=== PATIENT | male | born 1965 | race Caucasian/White ===

== ENCOUNTER 2016-05-16 12:47 | Emergency (ER) | payer MEDICARE, BC ==
[~2016-05-16] VITALS: Ht 175.3 cm; Wt 98.4 kg
[2016-05-16 12:49] VITALS: BP 139/103; PULSE 63; RESP 16; TEMP 98.7; O2SAT 98
[2016-05-16] MEDS ORDERED: GLAT1INJ SQ (12:51)
--- NOTE | 2016-05-16 13:21 | PD ---
HPI Chief Complaint: Musculoskeletal Complaint Time Seen by Provider: 13:17 Travel History International Travel<30 days: No Contact w/Intl Traveler<30days: No Traveled to known affect area: No History of Present Illness HPI Patient is a 50-year-old male presenting with left hand pain. He states 2 days ago he was walking on his pulled her neck when he slipped and fell landing with the back of the hand on the ground. Pain is in the lateral aspect over the fifth metacarpal, some at the base of the digit. He states when he moves the fingers sometimes radiates down into the hand. He has A splint on it which helps. He has swelling apply ice which also helped. He denies weakness or paresthesia. Denies any pain in the wrist, forearm and elbow of the left. He denies hitting his head or other injuries. PFSH Past Medical History Diminished Hearing: No Musculoskeletal: Yes (MS) Tetanus Vaccination: Unknown Influenza Vaccination: No Past Surgical History Tonsillectomy: Yes Social History Alcohol Use: No Tobacco Use: No Substance Use: No Allergies-Medications (Allergen,Severity, Reaction): Coded Allergies: No Known Allergies (Unverified , 05/16/16) Reported Meds & Prescriptions Reported Meds & Active Scripts Active Reported Copaxone Inj (Glatiramer Inj) 40 Mg/Ml Syr 40 Mg SQ 3XWEEK Use 3 times/week at least 48 hrs apart Review of Systems HENT: No: Headaches Musculoskeletal: Positive: Other (see the history of present illness) Skin: Positive Other (ecchymosis) Neurologic: No: Weakness, Focal Abnormalities, Paresthesia, Sensory Disturbance Physical Exam Narrative GENERAL: Well-developed and well-nourished adult male in no acute distress. SKIN: Warm and dry. Good turgor without tenting. HEAD: Normocephalic and atraumatic. CARDIOVASCULAR: Regular rate and rhythm without murmurs, rubs, clicks or gallops. Radial pulses 2+ bilaterally. Capillary refill less than 2 seconds assaultive of all fingers of left hand. RESPIRATORY: Clear to auscultation bilaterally with symmetrical rise and fall, no distress or use of accessory muscles. MUSCULOSKELETAL: Moderate edema and ecchymosis over the fourth and fifth metacarpals of the left hand. Tenderness over the fifth metacarpal without crepitus or step-offs. No other metacarpal tenderness. No fifth MCP tenderness. There is some tenderness at the base of the fifth finger of the left hand. From range of motion in flexion and extension of the finger even with isolation of the DIP and PIP joints. No pain to palpation of the wrist, forearm or elbow on the left. Normal range of motion of the left elbow and wrist. No scaphoid tenderness on the left. No gait disturbances. Patient freely moving all four extremities spontaneously. Extremities without clubbing, cyanosis, or edema. No obvious deformities. NEUROLOGIC: CN II-XII grossly intact. Awake and alert. Strength 5/5 bilateral elbow flexion, elbow extension, wrist flexion, wrist extension, flexion and extension of the fifth finger.sensation intact distal tip of the fifth finger left hand. Normal speech. PSYCHIATRIC: Appropriate mood and affect; insight and judgment normal. Data Data Last Documented VS Vital Signs Date Time Temp Pulse Resp B/P Pulse Ox O2 Delivery O2 Flow Rate FiO2 05/16/16 12:49 98.7 63 16 139/103 98 Orders Hand, Complete ([id number]) (05/16/16 13:16) [facility] Medical Decision Making Medical Screen Exam Complete: Yes Emergency Medical Condition: Yes Interpretation(s) Last 24 hours Impressions Hand X-Ray 05/16/16 1316 Signed Impressions: Service Date/Time: Monday, May 16, 2016 13:20 - CONCLUSION: No acute fracture. Zeeshan Banuelos MD Differential Diagnosis Hand contusion versus metacarpal fracture versus finger sprain versus finger fracture Narrative Course Patient is a 50-year-old male suffered a slip and fall 2 days prior suffering a contusion to the left hand on the fifth metacarpal and base of the fifth finger. Normal range of motion without deformity. There is some mild ecchymosis and edema. He is neurovascularly intact. X-ray shows evidence of fracture or dislocation. This was placed in a finger splint and Saad wrap for hand and finger sprain and recommend OTC anti-inflammatories.See discharge paperwork for further instructions. The plan was discussed with the patient who acknowledged their understanding and agreement. Reinforced the follow-up with primary care is critically important. Patient instructed on emergent conditions that should prompt return to ED. Diagnosis Primary Impression: Contusion of hand, left Additional Impression: Finger sprain Qualified Code: S63.657A - Sprain of metacarpophalangeal (MCP) joint of left little finger, initial encounter Patient Instructions: Contusion in Adults (ED), Finger Sprain (ED), General Instructions Additional Instructions: Take OTC ibuprofen or naproxen as needed for pain Apply ice every 1 to 2 hours as needed for pain Avoid maneuvers that aggravate pain Keep SAAD bandage and finger splint on while being active or using extremity Be aware that may take several weeks for sprains to heal fully Follow-up with PCP in 2-3 days Return to the ED for any acute worsening of symptoms Disposition: 01 DISCHARGE HOME Condition: Stable Saji Miller III May 16, 2016 13:20
--- NOTE | 2016-05-16 14:13 | RADHPO ---
EXAM DATE/TIME: 05/16/2016 13:20 [facility] COMPARISON: No previous studies available for comparison. INDICATIONS : Left hand/5th metacarpal pain. MEDICAL HISTORY : None. SURGICAL HISTORY : None. ENCOUNTER: Initial ACUITY: 3 days PAIN SCORE: 7/10 LOCATION: Left hand FINDINGS: Three view examination of the left hand demonstrates no soft tissue swelling, dislocation, or fractur e. The carpal bones appear intact. The interphalangeal and metacarpophalangeal joints are intact. Bony mineralization is normal. CONCLUSION: No acute fracture. Zeeshan Banuelos MD on May 16, 2016 at 13:41 Board Certified Radiologist. This report was verified electronically.
== END 2016-05-16 14:25 | disposition home or self-care (01) ==
LOC: PHEFT 12:47
DX: S60.222A Contusion of left hand, initial encounter (principal); S63.657A Sprain of metacarpophalangeal joint of left little finger, initial encounter; W01.0XXA Fall on same level from slipping, tripping and stumbling without subsequent striking against object, initial encounter
CPT/HCPCS: 73130; 99283

== ENCOUNTER 2017-06-06 09:37 | Emergency (ER) | payer MEDICARE, BC ==
[~2017-06-06] VITALS: Ht 175.3 cm; Wt 101.5 kg
[~2017-06-06 09:37] MED LIST: GLAT1INJ SQ
[2017-06-06 09:40] VITALS: BP 173/103; PULSE 62; RESP 15; TEMP 97.6; O2SAT 98
--- NOTE | 2017-06-06 10:08 | PD ---
HPI Chief Complaint: Head Injury Time Seen by Provider: 09:51 Travel History International Travel<30 days: No Contact w/Intl Traveler<30days: No Traveled to known affect area: No History of Present Illness HPI 51-year-old male that presents to the ED for evaluation of head injury and neck pain. Patient had a mechanical fall and injury of his head on . Per patient he was on the ground. He did not lose consciousness. His been having pain on the back of the neck radiates to the sides of the neck as well as pain behind the eyes since the fall. Symptoms are not improving which is what prompted evaluation. Patient taking 1000 mg of Tylenol for pain with minimal relief. Per patient the pain is not improving which is what prompted evaluation. Per patient the pain is 6 out of 10. No numbness, tilling, weakness. Patient does have a history of MS and takes medications for this. Denies any blurry vision or double vision. No trouble speaking. Able to ambulate. Has no allergies to medication. No urinary or bowel movement issues. No chest pain or shortness of breath. Has not seen anybody for this. Takes no blood thinners. Patient was put in a cervical collar by triage. PFSH Past Medical History Diminished Hearing: No Immune Disorder: Yes (MS) Musculoskeletal: Yes (MS) Tetanus Vaccination: > 5 Years Influenza Vaccination: No Past Surgical History Tonsillectomy: Yes Social History Alcohol Use: No Tobacco Use: No Substance Use: No Allergies-Medications (Allergen,Severity, Reaction): Coded Allergies: No Known Allergies (Unverified Adverse Reaction, Unknown, 06/06/17) Reported Meds & Prescriptions Reported Meds & Active Scripts Active Diclofenac Sodium DR (Diclofenac Sodium) 75 Mg Tabdr 75 Mg PO BID PRN Lisinopril 5 Mg Tab 5 Mg PO DAILY Reported Copaxone Inj (Glatiramer Inj) 40 Mg/Ml Syr 40 Mg SQ 3XWEEK Use 3 times/week at least 48 hrs apart Review of Systems Except as stated in HPI: all other systems reviewed are Neg Physical Exam Narrative GENERAL: SKIN: Warm and dry. HEAD: Atraumatic. Normocephalic. EYES: Pupils equal and round 4 mm reactive to light and accommodation. No scleral icterus. No injection or drainage. EOM intact bilaterally. Peripheral vision intact bilaterally. ENT: No nasal bleeding or discharge. Mucous membranes pink and moist. Tongue is midline. No uvula deviation. NECK: Trachea midline. No JVD. CARDIOVASCULAR: Regular rate and rhythm. No murmurs, S3, S4. RESPIRATORY: No accessory muscle use. Clear to auscultation. Breath sounds equal bilaterally. GASTROINTESTINAL: Abdomen soft, non-tender, nondistended. Hepatic and splenic margins not palpable. MUSCULOSKELETAL: Extremities without clubbing, cyanosis, or edema. No obvious deformities. Full range of motion of the upper and lower extremities bilaterally. Patient has reproducible pain on the cervical musculature of the neck. Patient was seen with cervical collar noted. No obvious deformity to the neck. No obvious cervical deformity. No lumbar, thoracic, spine tenderness to palpation. 2+ pulses bilaterally. NEUROLOGICAL: Awake and alert. No obvious cranial nerve deficits. Motor grossly within normal limits. Five out of 5 muscle strength in the arms and legs. Normal speech. PSYCHIATRIC: Appropriate mood and affect; insight and judgment normal. Data Data Last Documented VS Vital Signs Date Time Temp Pulse Resp B/P (MAP) Pulse Ox O2 Delivery O2 Flow Rate FiO2 06/06/17 10:42 60 18 159/97 (117) 97 Room Air 06/06/17 09:[address] Brain W/O Iv Contrast(Rout) (06/06/17 09:51) Ct Cerv Spine W/O Contrast (06/06/17 09:51) Ed Discharge Order (06/06/17 10:44) [facility] Medical Decision Making Medical Screen Exam Complete: Yes Emergency Medical Condition: Yes Medical Record Reviewed: Yes Interpretation(s) Last Impressions Head CT 06/06/17950 Signed Impressions: Service Date/Time: Tuesday, June 06, 2017 09:59 - CONCLUSION: Normal examination. Soto Whitaker MD Cervical Spine CT 06/06/17950 Signed Impressions: Service Date/Time: Tuesday, June 06, 2017 09:59 - CONCLUSION: Normal examination. Soto Whitaker MD Differential Diagnosis Muscle strain versus muscle spasm versus whiplash versus ICH versus fracture Narrative Course 51-year-old male that presents to the ED for evaluation of head injury and neck pain after fall. Patient was properly examined and was found to have signs and symptoms consistent with mechanical fall. Imaging was ordered. Imaging showed no sign of acute disease. Patient was reassured. This time is appears to be likely whiplash and concussion. Will treat with diclofenac sodium and over-the- counter remedies as needed. Patient was instructed to rest. Ice or warm compresses. Follow with PCP. Patient's blood pressure was slightly elevated here in the ED by mouth was 170 systolic initially was rechecked and 150s. Could be potentially essential hypertension starting versus blood pressure being elevated secondary to discomfort as well as been in the ER. I gave patient a short prescription for lisinopril to use his blood pressure continues to be 140. Follow with PCP. See ED worsening symptoms. Diagnosis Primary Impression: Whiplash injury Qualified Codes: S13.4XXA - Sprain of ligaments of cervical spine, initial encounter Additional Impression: Head injury, acute Qualified Codes: S09.90XA - Unspecified injury of head, initial encounter Patient Instructions: General Instructions Additional Instructions: Take medications as prescribed. Follow-up with PCP. See ED for any worsening symptoms. Do not drink or drive while taking pain medication. Apply ice or heat as needed for pain Med/Other Pt SpecificInfo: Prescription(s) given Scripts Diclofenac Sodium (Diclofenac Sodium DR) 75 Mg Tabdr 75 MG PO BID Y for PAIN SCALE 1 TO 10, #20 TAB 0 Refills Prov: Elissa Stone MD 06/06/17 Lisinopril (Lisinopril) 5 Mg Tab 5 MG PO DAILY for Blood Pressure Management, #30 TAB 0 Refills Prov: Elissa Stone MD 06/06/17 Disposition: 01 DISCHARGE HOME Condition: Stable Israel Mae Jun 06, 2017 10:08
--- NOTE | 2017-06-06 10:16 | RADRPT ---
EXAM DATE/TIME: 06/06/2017 09:59 [facility] COMPARISON: No previous studies available for comparison. INDICATIONS : Hit head on the ground playing softball. RADIATION DOSE: 67.22 CTDIvol (mGy) MEDICAL HISTORY : Neck lesions, MS SURGICAL HISTORY : Tonsillectomy. ENCOUNTER: Initial ACUITY: 1 day PAIN SCALE: 2/10 LOCATION: cranial TECHNIQUE: Multiple contiguous axial images were obtained of the head. Using automated exposure control and adj ustment of the mA and/or kV according to patient size, radiation dose was kept as low as reasonably a chievable to obtain optimal diagnostic quality images. DICOM format image data is available electro nically for review and comparison. FINDINGS: CEREBRUM: The ventricles are normal for age. No evidence of midline shift, mass lesion, hemorrhage or acute in farction. No extra-axial fluid collections are seen. POSTERIOR FOSSA: The cerebellum and brainstem are intact. The 4th ventricle is midline. The cerebellopontine angle i s unremarkable. EXTRACRANIAL: The visualized portion of the orbits is intact. SKULL: The calvaria is intact. No evidence of skull fracture. CONCLUSION: Normal examination. Soto Whitaker MD on June 06, 2017 at 10:15 Board Certified Radiologist. This report was verified electronically.
--- NOTE | 2017-06-06 10:20 | RADRPT ---
EXAM DATE/TIME: 06/06/2017 09:59 [facility] COMPARISON: No previous studies available for comparison. INDICATIONS : <Trauma head pain head neck> RADIATION DOSE: <26.67> CTDIvol (mGy) MEDICAL HISTORY : <trauma, ms>> SURGICAL HISTORY : <None> ENCOUNTER: <Acute> ACUITY: <acute> PAIN SCALE: <2/10> LOCATION: <Neck> TECHNIQUE: Volumetric scanning of the cervical spine was performed. Multiplanar reconstructions in the sagittal, coronal and oblique axial planes were performed. Using automated exposure control and adjustment o f the mA and/or kV according to patient size, radiation dose was kept as low as reasonably achievable to obtain optimal diagnostic quality images. DICOM format image data is available electronically f or review and comparison. FINDINGS: VERTEBRAE: Normal vertebral body height. ALIGNMENT: No evidence of subluxation. C2-C3: The bony spinal canal is normal in size. No evidence of disc bulge or herniation. The neural forami na are bilaterally patent. C3-C4: The bony spinal canal is normal in size. No evidence of disc bulge or herniation. The neural forami na are bilaterally patent. C4-C5: The bony spinal canal is normal in size. No evidence of disc bulge or herniation. The neural forami na are bilaterally patent. C5-C6: The bony spinal canal is normal in size. No evidence of disc bulge or herniation. The neural forami na are bilaterally patent. C6-C7: The bony spinal canal is normal in size. No evidence of disc bulge or herniation. The neural forami na are bilaterally patent. C7-T1: The bony spinal canal is normal in size. No evidence of disc bulge or herniation. The neural forami na are bilaterally patent. CONCLUSION: Normal examination. Soto Whitaker MD on June 06, 2017 at 10:17 Board Certified Radiologist. This report was verified electronically.
[2017-06-06 10:42] VITALS: BP 159/97; PULSE 60; RESP 18; O2SAT 97
[2017-06-06] MEDS ORDERED: LISI-519 PO (10:43)
[2017-06-06] MEDS ORDERED: DICL75TA PO (10:43)
== END 2017-06-06 10:53 | disposition home or self-care (01) ==
LOC: PHEFT 09:37
DX: S13.4XXA Sprain of ligaments of cervical spine, initial encounter (principal); S09.90XA Unspecified injury of head, initial encounter; W19.XXXA Unspecified fall, initial encounter; G35 Multiple sclerosis
CPT/HCPCS: 70450; 72125; 99283